=== PATIENT | male | born 2000 | race Caucasian/White ===

== ENCOUNTER 2022-07-08 09:29 | Outpatient (REF) | payer BC, SELFPAY | END 2022-07-08 09:30 | disposition home or self-care (01) | LOC: HO.LAB 09:29 | PROVIDERS: Visit Provider Family Medicine | DX: Z13.89 Encounter for screening for other disorder (principal) ==

== ENCOUNTER 2022-09-13 12:45 | Outpatient (REF) | payer BC, SELFPAY ==
[2022-09-13 14:30] LABS: Appearance Urine Clear; Color Urine Yellow; Glucose Urine UA Negative (Negative); Leukocyte Esterase Urine Negative (Negative); Nitrite Urine Negative (Negative); Urine Blood Negative (Negative); Urine Ketones Negative (Negative); Urine Protein Negative (Neg-Trace)
[2022-09-13 14:31] LABS: MANUAL DIFF FLAG NO
[2022-09-13 14:38] LABS: Basophils Percent Auto 0.5 % (0-2); Eosinophils Absolute Auto 0.3 X10*3/uL (0.0-0.4); Eosinophils Percent Auto 4.9 % (0-4); Hematocrit 45.6 % (42.0-52.0); Hemoglobin 15.3 g/dl (14.0-18.0); Lymphocytes Absolute Auto 1.9 X10*3/uL (1.2-4.9); Lymphocytes Percent Auto 32.3 % (20-40); Mean Corpuscular HGB Conc 33.6 g/dl (31.0-36.0); Mean Corpuscular Hemoglobin 29.2 pg (27.0-33.0); Mean Platelet Volume 10.1 fL (9.4-12.4); Monocytes Absolute Auto 0.4 X10*3/uL (0.1-1.2); Monocytes Percent Auto 7.5 % (2-11); Neutrophils Absolute Auto 3.2 x10*3/uL (2.0-8.3); Neutrophils Percent Auto 54.8 % (45-73); Platelet Count 284 X10*3/uL (160-400); Red Blood Count 5.24 X10*6/uL (4.60-5.80); White Blood Count 5.9 X10*3/uL (4.8-10.8)
[2022-09-13 16:13] LABS: Alanine Aminotransferase 16 U/L (0-40); Albumin Level 4.6 g/dL (3.5-5.0); Alkaline Phosphatase 60 U/L (39-117); Anion Gap 11 (12-20); Aspartate Amino Transferase 16 U/L (5-37); Bilirubin Total 0.5 mg/dL (0.0-1.0); Blood Urea Nitrogen 10 mg/dL (9-16); Calcium 9.7 mg/dL (8.4-10.2); Carbon Dioxide 29 mmol/L (22-29); Chloride 104 mmol/L (96-108); Cholesterol 163 mg/dL; Estimated Glomerular Filt Rate > 60; Glucose Fasting 87 mg/dL (60-99); HDL Cholesterol 50 mg/dL; LDL Cholesterol Calculated 98 mg/dl; Potassium 4.4 mmol/L (3.3-5.1); Sodium 140 mmol/L (135-145); TSH reflex Free T4 1.53 uIU/mL (0.32-4.0); Triglycerides 77 mg/dL
[2022-09-14 05:47] LABS: Syphilis Screen Nonreactive (Nonreactive)
[2022-09-14 05:51] LABS: HBS Num1 1.86 mIU/mL (0-7.99); HBc Num1 0.04 S/CO (0.00-0.79); HBsAGNum1 0.18 S/CO (0.00-0.99); HIV AB/AG Nonreactive (Nonreactive); HIV Num 1 0.07 S/CO (0.00-0.99); Hepatitis B Core Antibody Nonreactive (Nonreactive); Hepatitis B Surface Antigen Negative (Negative); ~HepC Num1 0.19 S/CO (0.00-0.79); ~Hepatitis B Surface Antibody NONREACTIVE (Nonreactive); ~Hepatitis C Antibody Nonreactive (Nonreactive)
== END 2022-09-13 12:46 | disposition home or self-care (01) ==
LOC: HO.WFDLDS 12:45
PROVIDERS: Visit Provider Family Medicine
DX: Z00.00 Encounter for general adult medical examination without abnormal findings (principal); Z11.4 Encounter for screening for human immunodeficiency virus [HIV]; Z11.3 Encounter for screening for infections with a predominantly sexual mode of transmission; L30.9 Dermatitis, unspecified
CPT/HCPCS: 36415; 80053; 80061; 81003; 84443; 85025; 86704; 86706; 86780; 86803; 87340; 87389

== ENCOUNTER 2023-04-20 15:00 | Outpatient (REF) | payer BC, SELFPAY | END 2023-04-20 15:01 | disposition home or self-care (01) | LOC: HO.LAB 15:00 | PROVIDERS: Visit Provider Family Medicine | DX: Z13.89 Encounter for screening for other disorder (principal) ==

== ENCOUNTER 2023-04-21 11:27 | Outpatient (REF) | payer BC, SELFPAY ==
[2023-04-21 11:57] LABS: Amphetamine Screen Urine Not Detected (Not Detect); Barbiturates, Urine Not Detected (Not Detect); Benzodiazepines Screen Urine Not Detected (Not Detect); Cannabinoid Screen Urine Not Detected (Not Detect); Cocaine Screen Urine Not Detected (Not Detect); Fentanyl, urine Not Detected (Not Detect); Opiate Screen Urine Not Detected (Not Detect); Phencyclidine Screen Urine Not Detected (Not Detect)
== END 2023-04-21 11:28 | disposition home or self-care (01) ==
LOC: HO.LNP 11:27
PROVIDERS: Visit Provider Family Medicine
DX: F90.9 Attention-deficit hyperactivity disorder, unspecified type (principal)
CPT/HCPCS: 80307

== ENCOUNTER 2023-05-01 15:33 | Outpatient (REF) | payer BC, SELFPAY ==
--- NOTE | ~2023-05-01 | US_ITS ---
EXAMINATION: US SCROTUM CLINICAL INFORMATION: Testicular mass. COMPARISON: None available. TECHNIQUE: A sonogram of the scrotum was performed assessing cleveland-scale appearance and color Doppler flow. Spectral Doppler analysis of the arterial and venous flow were performed in the testes bilaterally. FINDINGS: RIGHT: Right testicle measures 3.9 x 1.9 x 2.6 cm, volume 10.1 mL. No focal testicular parenchymal lesions are visualized. Spectral Doppler analysis of the arterial and venous flow is normal in the right testis. Right epididymal head is normal in size. A 6 mm right epididymal head cyst versus spermatocele is seen. No right hydrocele or varicocele is seen. Right epididymal Doppler flow is normal. LEFT: Left testicle measures 3.2 x 2.1 x 2.6 cm, volume 9.5 mL. No focal testicular parenchymal lesions are visualized. Spectral Doppler analysis of the arterial and venous flow is normal in the left testis. Left epididymal head is normal in size. A 3 mm left epididymal head cyst versus spermatocele is seen. No left hydrocele or varicocele is seen. Left epididymal Doppler flow is normal. US/US scrotum IMPRESSION: There are bilateral epididymal head cysts versus spermatoceles, as detailed. No testicular mass or torsion is seen. There is no varicocele or hydrocele noted bilaterally.
== END 2023-05-01 15:34 | disposition home or self-care (01) ==
LOC: HO.US 15:33
PROVIDERS: PCP Family Medicine; Visit Provider Family Medicine
DX: N50.89 Other specified disorders of the male genital organs (principal)
CPT/HCPCS: 76870

== ENCOUNTER 2023-05-23 14:48 | Outpatient (AMB) | payer BC, SELFPAY ==
--- NOTE | 2023-05-23 14:54 | A.OFFPC_ITS ---
Vital Signs 05/23/23 14:56 Height 5 ft 5 in Weight 144 lb BMI 24.0 BP 122/70 Blood Pressure Location Lt brachial Position Sitting Pulse 73 Pulse Source Pulse Oximeter Pulse Oximetry (%) 99 Oxygen Delivery Method Room Air Intake Visit Reasons: f/u ADHD, anxiety, ultrasound Intake Note: Patient is here for follow up on ADHD, anxiety, and ultraound. Allergies Penicillins Allergy (Severe, Verified 05/23/23 14:58) anaphylactic peanuts Allergy (Mild, Uncoded 05/23/23 14:58) unknown Tobacco use date assessed: 07/06/22 Dental Screening Dental Screen Date: 05/23/23 Did you have a dental visit in the last 12 months?: Yes Did you have a dental problem in the last 6 months where you did not have access to dental care?: No Was dental information given to patient?: No HPI f/u ADHD, anxiety, ultrasound HPI Details 22 y/o male presents to f/u ADHD, anxiety and ultrasound. Had started him on citalopram for anxiety. He has not had Adderall for some time. Scrotum ultrasound 05/01/23 showed bilateral epididymal head cysts versus spermatoceles. No testicular mass or torsion was seen. No varicocele or hydrocele noted bilaterally. He reports sweating and swelling ever since he started his citalopram. He reports sweating/swelling has been happening every time he has been anxious. He notes he has not experienced these symptoms before he started his citalopram. [facility] Medical History ADHD Alopecia Eczema Surgical History H/O wisdom tooth extraction Social History Housing: House Patient Tobacco Use Status: Former Tobacco user Tobacco use type: Cigarette e-Cigarette/Vaping Use: Currently Using Second Hand Smoke Exposure: No service: No Current occupational status: employed Hearing needs: No Vision needs: No Questionnaire PHQ-9 Over the last 2 weeks, how often have you been bothered by any of the following problems? 1. Little interest or pleasure in doing things: several days 2. Feeling down, depressed, or hopeless: not at all 3. Trouble falling or staying asleep, or sleeping too much: more than half the days 4. Feeling tired or having little energy: not at all 5. Poor appetite or overeating: more than half the days 6. Feeling bad about yourself - or that you are a failure or have let yourself or your family down: not at all 7. Trouble concentrating on things, such as reading the newspaper or watching television: not at all 8. Moving or speaking so slowly that other people could have noticed. Or the opposite - being so fidgety or restless that you have been moving around a lot more than usual: not at all 9. Thoughts that you would be better off or of hurting yourself in some way: not at all Total score: 5 Source: Developed by Drs. Low Krueger, Tiffanie Long, Tayo Stevens and colleagues, with an educational sabino from [employer]. CLAUDIA-7 AMB Questionnaire CLAUDIA-7 Date CLAUDIA - 7 assessed: 07/06/22 Feeling nervous, anxious, or on edge: 2 = More than half the days Not being able to stop or control worryin = Several days Worrying too much about different things: 1 = Several days Trouble relaxin = Not at all Being so restless that it is hard to sit still: 0 = Not at all Becoming easily annoyed or irritable: 0 = Not at all Feeling afraid as if something awful might happen: 1 = Several days Total CLAUDIA-7 score (0-4 normal; 5-9 mild; 10-14 moderate; 15-21 severe): 5 Source: Developed by Drs. Low Krueger, Tiffanie Long, Tayo Stevens and colleagues, with an educational sabino from [employer]. Physical exam (Primary Care) Vital Signs: Last Vital Signs Pulse 73 05/23/23 14:56 BP 122/70 05/23/23 14:56 Pulse Ox 99 05/23/23 14:56 Oxygen Delivery Method Room Air 05/23/23 14:56 BMI result Body Mass Index 24.0 Tobacco/Smoking Status: Tobacco use Status Tobacco use date assessed 07/06/22 05/23/23 14:55 Patient Tobacco Use Status Former Tobacco user 05/23/23 14:55 Tobacco use type Cigarette 05/23/23 14:55 e-Cigarette/Vaping Use Currently Using 05/23/23 14:55 PHQ-9: PHQ-9 Score PHQ-9: Total score 5 05/23/23 15:03 Assessment and Plan Assessment & Plan (1) ADHD: Code(s): F90.9 - Attention-deficit hyperactivity disorder, unspecified type Plan: Patient had been office medication prior to last urine drug screen. He has not had the medication for quite some time. Will refill at today. Encouraged him to take for a couple of days and then come in Monday or Monday to get urine testing done. He will watch for any increase in anxiety due to the medication. He will watch for appetite suppression or difficulty with sleep. Will follow-up in a month (2) Anxiety: Code(s): F41.9 - Anxiety disorder, unspecified Plan: Ongoing anxiety He is tolerating citalopram and would like to have this increased. Will increase to 30 mg daily. (3) Testicular discomfort: Code(s): N50.819 - Testicular pain, unspecified Plan: Ultrasound shows bilateral epididymal head cysts versus spermatoceles. No significant discomfort. He will try conservative measures 1st and if he is having discomfort or enlargement of nodules, will refer him to urology. Orders: Orders Amphetamine by GC/MS Today F90.9 - Attention-deficit hyperactivity disorder, unspecified type Drug Screen Urine Today F90.9 - Attention-deficit hyperactivity disorder, unspecified type Medications: Refilled dextroamphetamine-amphetamine 20 mg ER (Adderall XR) 20mg in the morning, MWF orally 3 DAYS A WEEK; [facility] verified. Partial refill upon request. 12 caps 0RF 28 days F90.9 - Attention-deficit hyperactivity disorder, unspecified type Coding Level of Care Code Est Pt Level 4 (46511) Diagnoses ADHD F90.9 Anxiety F41.9 Testicular discomfort N50.819
[2023-05-23 14:56] VITALS: BP 122/70; PULSE 73; O2SAT 99; BMI 24.0
== END 2023-05-23 15:18 | disposition home or self-care (01) ==
PROVIDERS: PCP Family Medicine; Visit Provider Family Medicine
DX: F90.9 Attention-deficit hyperactivity disorder, unspecified type (principal); F41.9 Anxiety disorder, unspecified; N50.819 Testicular pain, unspecified
CPT/HCPCS: 99214

== ENCOUNTER 2023-06-13 11:07 | Outpatient (AMB) | payer BC, SELFPAY ==
--- NOTE | 2023-06-13 11:37 | MHC.OFFVIS ---
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 Patient states it has increase in size in the last 1-2 months. States 1 month ago he applied pressure and notice the size had decreased. Patient would like to discuss aspiration vs surgical intervention. Allergies Penicillins Allergy (Severe, Verified 06/13/23 11:39) anaphylactic peanuts Allergy (Mild, Uncoded 06/13/23 11:39) unknown HPI MECHANIC MARINE ENGINE- bursal cyst, right wrist HPI Details Constantin is a 22 year old right hand dominant man who presents to discuss a right wrist mass. He complains of a mass on the dorsal aspect of his right wrist. He says this has been present for ~5 months, and had a increased in size over the last ~1-2 months. He says a few weeks ago he applied pressure to the mass and felt it shrink in size. He denies any pain or limited ROM PFSH Medical History ADHD Alopecia Eczema Surgical History H/O wisdom tooth extraction Social History (Updated 06/13/23 @ 11:44 by Marni Pavon [facility]) Housing: House Patient Tobacco Use Status: Former Tobacco user Tobacco use type: Cigarette e-Cigarette/Vaping Use: Currently Using Second Hand Smoke Exposure: No service: No Current occupational status: employed and student Current occupation: rt hand/ service cashier Hearing needs: No Vision needs: No Review of Systems Const All systems reviewed & are unremarkable except as noted in HPI and below Physical Exam Vital Signs: BMI result Body Mass Index 24.0 Const General: cooperative, healthy appearing and no acute distress Orientation/consciousness: patient oriented x3 HEENT Head: Yes normocephalic and Yes atraumatic Eyes EOM: EOMs intact bilaterally Resp Effort & Inspection: normal respiratory effort and able to speak in complete sentences Cardio Jugular venous distension: no JVD Skin General skin exam: turgor normal Rashes: no rashes Neuro General: patient oriented x3 Extrem Other: Evaluation of Right Upper Extremity: The patient is alert, oriented, and in no acute distress Neuro: Median, Ulnar, Radial nerves motor and sensory intact and sensation is normal to the tips of all digits Vascular: Cap refill brisk ROM: He can make a fist and extend all his digits Smooth & painless wrist ROM Skin: No lacerations or abrasions. General: No Ecchymosis. No Erythema or evidence of infection. There is a mass on the dorsal central aspect of his right wrist, measuring ~1cm in diameter. This is relatively flat and soft, and appears to have drained back into the wrist. Barely visible Radiographs: 3 views of the right wrist were taken and viewed by me today in clinic. They show no fractures, dislocations, or early arthritic changes Psych Appearance: grossly normal Affect: normal affect Attitude: cooperative Assessment & Plan Assessment & Plan (1) Mass of right wrist: Code(s): R22.31 - Localized swelling, mass and lump, right upper limb Plan Assessment & Plan: 1. Right dorsal central wrist mass Measuring ~1cm in diameter, relatively flat and soft as it has gotten smaller I educated him about this condition I discussed operative and non-operative treatment options This will be managed conservatively This has decreased in size over the last few weeks after he applied pressure to this at home If the mass begins to increase in size or begins to affect his wrist function, he can follow up to discuss treatment Otherwise he can follow up prn Scribed for Fern Gomes MD by Saroj Hall, medical translator, on 06/13/23 at 12:05 PM, EST. Orders: Orders XR wrist RT min 3V Today M25.531 - Pain in right wrist Coding Level of Care Code New Pt Level 3 (22083) Diagnoses Mass of right wrist R22.31
[2023-06-13 11:38] VITALS: BMI 24.0
== END 2023-06-13 12:07 | disposition home or self-care (01) ==
PROVIDERS: PCP Family Medicine; Visit Provider Orthopaedic Surgery
DX: R22.31 Localized swelling, mass and lump, right upper limb (principal)
CPT/HCPCS: 99203

== ENCOUNTER 2023-06-13 12:40 | Outpatient (REF) | payer BC, SELFPAY ==
--- NOTE | ~2023-06-13 | XR_ITS ---
EXAMINATION: XR WRIST, RIGHT CLINICAL INFORMATION: Pain COMPARISON: None available. TECHNIQUE: PA, lateral, and oblique views of the right wrist. FINDINGS: No acute fracture or dislocation. Joint spaces are maintained. Soft tissues are unremarkable. XR/XR wrist RT min 3V IMPRESSION: No acute osseous abnormality.
== END 2023-06-13 12:41 | disposition home or self-care (01) ==
LOC: HO.HOSX 12:40
PROVIDERS: Visit Provider Orthopaedic Surgery
DX: R22.31 Localized swelling, mass and lump, right upper limb (principal)
CPT/HCPCS: 73110

== ENCOUNTER 2023-06-29 14:39 | Outpatient (AMB) | payer BC, SELFPAY ==
--- NOTE | 2023-06-29 14:39 | MHC.PC.OV ---
Vital Signs 06/29/23 14:40 Height 5 ft 5 in Weight 145 lb 2 oz BMI 24.1 BP 116/70 Blood Pressure Location Rt brachial Position Sitting Pulse 70 Pulse Source Pulse Oximeter Pulse Oximetry (%) 98 Oxygen Delivery Method Room Air Intake Visit Reasons: f/u ADHD and anxiety Intake Note: Patient is here to follow up on ADHD/anxiety and to discuss the meds. Allergies Penicillins Allergy (Severe, Verified 06/29/23 14:44) anaphylactic peanuts Allergy (Mild, Uncoded 06/29/23 14:44) unknown Tobacco use date assessed: 06/29/23 Dental Screening Dental Screen Date: 06/29/23 Did you have a dental visit in the last 12 months?: Yes Did you have a dental problem in the last 6 months where you did not have access to dental care?: No Was dental information given to patient?: Patient has dentist HPI f/u ADHD and anxiety HPI Details 22 y/o male presents to f/u ADHD and anxiety. He is on Adderall 20mg and citalopram 20mg daily. Pt reports he has been taking citalopram one and a half but he reports his therapist recommends something different. [facility] Medical History ADHD Alopecia Eczema Surgical History H/O wisdom tooth extraction Social History (Updated 06/13/23 @ 11:44 by Marni Pavon [facility]) Housing: House Patient Tobacco Use Status: Former Tobacco user Tobacco use type: Cigarette e-Cigarette/Vaping Use: Currently Using Second Hand Smoke Exposure: No service: No Current occupational status: employed and student Current occupation: rt hand/ community administrator Hearing needs: No Vision needs: No Questionnaire PHQ-9 Over the last 2 weeks, how often have you been bothered by any of the following problems? 1. Little interest or pleasure in doing things: several days 2. Feeling down, depressed, or hopeless: several days 3. Trouble falling or staying asleep, or sleeping too much: more than half the days 4. Feeling tired or having little energy: several days 5. Poor appetite or overeating: not at all 6. Feeling bad about yourself - or that you are a failure or have let yourself or your family down: not at all 7. Trouble concentrating on things, such as reading the newspaper or watching television: several days 8. Moving or speaking so slowly that other people could have noticed. Or the opposite - being so fidgety or restless that you have been moving around a lot more than usual: not at all 9. Thoughts that you would be better off or of hurting yourself in some way: not at all Total score: 6 Source: Developed by Drs. Low Krueger, Tiffanie Long, Tayo Stevens and colleagues, with an educational sabino from [employer]. CLAUDIA-7 AMB Questionnaire CLAUDIA-7 Date CLAUDIA - 7 assessed: 06/29/23 Feeling nervous, anxious, or on edge: 1 = Several days Not being able to stop or control worryin = Several days Worrying too much about different things: 0 = Not at all Trouble relaxin = Not at all Being so restless that it is hard to sit still: 0 = Not at all Becoming easily annoyed or irritable: 0 = Not at all Feeling afraid as if something awful might happen: 0 = Not at all Total CLAUDIA-7 score (0-4 normal; 5-9 mild; 10-14 moderate; 15-21 severe): 2 Source: Developed by Drs. Low Krueger, Tiffanie Long, Tayo Stevens and colleagues, with an educational sabino from [employer]. Physical exam (Primary Care) Vital Signs: Last Vital Signs Pulse 70 06/29/23 14:40 BP 116/70 06/29/23 14:40 Pulse Ox 98 06/29/23 14:40 Oxygen Delivery Method Room Air 06/29/23 14:40 BMI result Body Mass Index 24.1 Tobacco/Smoking Status: Tobacco use Status Tobacco use date assessed 06/29/23 06/29/23 14:49 Patient Tobacco Use Status Former Tobacco user 06/29/23 14:49 Tobacco use type Cigarette 06/29/23 14:49 e-Cigarette/Vaping Use Currently Using 06/29/23 14:49 PHQ-9: PHQ-9 Score PHQ-9: Total score 6 06/29/23 14:53 Assessment and Plan Assessment & Plan (1) ADHD: Code(s): F90.9 - Attention-deficit hyperactivity disorder, unspecified type Plan: Patient has had difficulty obtaining medication. Has been using old Adderall from an old prescription I explained to him that I do not want him using any Adderall except the Adderall that I prescribed him and he understands. Based on his use of old Adderall, he says he is uncertain that Adderall will or will not be in his urine testing. Will discuss results with patient. Will have the nurse find a pharmacy that can provide the prescription for his Adderall and I will send that script there today. We also discussed that he will need to get urine drug screens when I order them and not miss any more. Patient understands (2) Anxiety: Code(s): F41.9 - Anxiety disorder, unspecified Plan: Increased citalopram and this seems to be helping. However his therapist suggested he might benefit from a another medication more. Patient is uncertain of what that is. He can ask his therapist to send me a message with any suggestions. For now, continue citalopram 30 mg daily (3) Mass of right wrist: Code(s): R22.31 - Localized swelling, mass and lump, right upper limb Plan: Hand surgery recommended conservative management of lump on his wrist. He can let me know if anything changes Medications: Changed From citalopram 20 mg PO DAILY 30 days 30 tabs 1RF To citalopram 30 mg (1.5 x 20 mg) PO DAILY 30 days 45 tabs 1RF Coding Level of Care Code Est Pt Level 3 (38510) Diagnoses ADHD F90.9 Anxiety F41.9 Mass of right wrist R22.31
[2023-06-29 14:40] VITALS: BP 116/70; PULSE 70; O2SAT 98; BMI 24.1
== END 2023-06-29 15:11 | disposition home or self-care (01) ==
PROVIDERS: PCP Family Medicine; Visit Provider Family Medicine
DX: F90.9 Attention-deficit hyperactivity disorder, unspecified type (principal); F41.9 Anxiety disorder, unspecified; R22.31 Localized swelling, mass and lump, right upper limb
CPT/HCPCS: 99213

== ENCOUNTER 2023-06-29 14:56 | Outpatient (REF) | payer BC, SELFPAY ==
[2023-07-01 04:48] LABS: CT PCR NOT DETECTED (Not Detect.); NG PCR NOT DETECTED (Not Detect.)
== END 2023-06-29 14:57 | disposition home or self-care (01) ==
LOC: HO.LAB 14:56
PROVIDERS: Visit Provider Family Medicine
DX: Z20.2 Contact with and (suspected) exposure to infections with a predominantly sexual mode of transmission (principal)
CPT/HCPCS: 0353U

== ENCOUNTER 2023-08-17 08:34 | Outpatient (AMB) | payer BC, SELFPAY ==
--- NOTE | 2023-08-17 08:48 | MHC.OFFWIV ---
Intake Vital Signs 08/17/23 08:49 Height 5 ft 5 in Weight 145 lb BMI 24.1 BP 122/68 Blood Pressure Location Lt brachial Position Sitting Pulse 87 Pulse Source Pulse Oximeter Pulse Oximetry (%) 98 Oxygen Delivery Method Room Air Intake Visit Reasons: EP Lump on neck Intake Note: Patient here for lump in neck that has been present for a few months. denies any pain. Patient Tobacco Use Status: Former Tobacco user Allergies Penicillins Allergy (Severe, Verified 08/17/23 08:50) anaphylactic peanuts Allergy (Mild, Uncoded 08/17/23 08:50) unknown eggs Adverse Reaction (Intermediate, Uncoded 08/17/23 08:50) hives Do you need a note to return to daycare/school/sports/work: No HPI EP Lump on neck HPI Details 22-year-old male patient presents today with his for evaluation of a lump on the left side of his. He reports he noticed this 2 months ago, when feeling the side of his. He reports it is very, and sometimes he cannot find it. He denies any pain. He states it is. He denies any fever chills, fatigue, weight loss. He denies any injury or straining of neck. Patient and mother also wished to discuss ongoing anxiety which is extremely well controlled at this time. He is on Celexa, which is prescribed his PCP Dr. Ochoa. He does have GI side effects from this med. He has a counselor however would ideally like to see a psych provider who can trial him on different medications for his anxiety. 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 Hearing needs: No Vision needs: No Review of Systems Const All systems reviewed & are unremarkable except as noted in HPI and below Physical Exam Vital Signs: Last Vital Signs Pulse 87 10/12/23 08:49 BP 122/68 08/17/23 08:49 Pulse Ox 98 08/17/23 08:49 Oxygen Delivery Method Room Air 08/17/23 08:49 BMI result Body Mass Index 24.1 Const General: cooperative, healthy appearing, comfortable and no acute distress HEENT Head: Yes normal to inspection Ears: hearing grossly normal bilaterally General nose exam: Normal external nose present and Normal nares present Face and sinus: Yes normal facial exam and Yes sinuses nontender Mouth: Normal oral and palatal mucosa present and moist mucous membranes Throat: Yes posterior oropharynx normal Neck Neck: Yes normal visual inspection, Yes no lymphadenopathy and Yes supple Thyroid: Thyroid normal Lymphatic: no lymphadenopathy noted Resp Effort & Inspection: normal respiratory effort and able to speak in complete sentences Auscultation: clear to auscultation bilaterally Cardio Jugular venous distension: no JVD Palpation: normal PMI Rate: regular rate Rhythm: regular rhythm Skin General skin exam: no rashes or lesions noted Extrem General: Yes capillary refill normal and Yes no clubbing, cyanosis or edema Assessment & Plan Assessment & Plan (1) Anxiety: Code(s): F41.9 - Anxiety disorder, unspecified Plan: I cannot palpate any sort of lump or mass on patient's left side of neck, which he reports he can sometimes feel with deep palpation. No lymphadenopathy noted. He has no sick symptoms. Thyroid palpates normal. I advised him to return to the clinic, or follow-up with his PCP if this lump becomes larger, painful, if additional lumps appear or if he develops any other symptoms. Patient and his mother present visit both verbalize understanding and agreed to plan. As for his anxiety, he reports that is not very well controlled on Celexa. He also gets GI side with this medication and would like to try something different. He ideally would like to see a psych provider who can trial different medications. I had our community health worker Nayana Malone go in to speak with patient and his mother. She is going to place referral to [facility] for psychiatry, as he already has a therapist. Coding Level of Care Code Est Pt Level 3 (28195) Diagnoses Anxiety F41.9
[2023-08-17 08:49] VITALS: BP 122/68; PULSE 87; O2SAT 98; BMI 24.1
== END 2023-08-17 09:55 | disposition home or self-care (01) ==
PROVIDERS: PCP Family Medicine; Visit Provider Nurse Practitioner Family
DX: F41.9 Anxiety disorder, unspecified (principal)
CPT/HCPCS: 99213